=== PATIENT | female | born 1985 | race African-American/Black ===

== ENCOUNTER 2017-04-04 07:47 | Emergency (ER) | payer MEDICAID ==
[~2017-04-04] VITALS: Ht 165.1 cm; Wt 70.0 kg
[~2017-04-04 07:47] MED LIST: AMOXICILLIN500 MG PO; BREVICON OR; BREVICON PO; CIPRO XR500 M2 PO; FIORICET PO; LORTAB 5 OR; MACROBID100 MG OR; NO; NO HOME MEDS; PRENATAL1 TA1 PO; PRILOSEC OTC20 MG OR; TORADOL OR; [UNRECOGNIZED DRUG - REMARK]
[2017-04-04 08:46] LABS: HEMATOCRIT 41.1 % (37.0-47.0); IMMATURE GRANULOCYTES 0.3 % (0.0-1.0); MEAN CELL VOLUME 87.3 fL CALC (80.0-100.0); MEAN CORPUSCULAR HGB 29.7 pG CALC (26.0-32.0); MEAN CORPUSCULAR HGB CONC 34.1 g/L CALC (32.0-36.0); NEUT# 5.58 thou/uL (2.00-7.15); RED BLOOD COUNT 4.71 mill/uL (4.20-5.60); RED CELL DISTRI WIDTH 12.2 % (11.5-15.5)
[2017-04-04 08:54] LABS: URINE BILIRUBIN - DIPSTICK NEGATIVE (NEGATIVE); URINE BLOOD DIPSTICK NEGATIVE (NEGATIVE); URINE CLARITY CLEAR; URINE COLOR YELLOW; URINE GLUCOSE - DIPSTICK NEGATIVE (NEGATIVE); URINE KETONE NEGATIVE (NEGATIVE); URINE LEUK ESTERASE NEGATIVE (NEGATIVE); URINE NITRITE - DIPSTICK NEGATIVE (Negative); URINE PROTEIN - DIPSTICK NEGATIVE (NEG-TRACE); URINE SPECIFIC GRAVITY <=1.005; URINE UROBILINOGEN - DIPSTICK 0.2 E.U./dL (0.2)
[2017-04-04 09:01] LABS: ALBUMIN 4.9 g/dL (3.2-5.0); ALKALINE PHOSPHATASE 64 u/l (38-126); ANION GAP 18 (6-22 (CALC)); BILIRUBIN, TOTAL 0.6 mg/dL (0.0-1.4); BUN 12 mg/dL (7-17); BUN/CREATININE RATIO 16 (12-20 (CALC)); CALCIUM 10.3 mg/dL (8.4-10.2); CARBON DIOXIDE 25 mmol/l (22-30); CHLORIDE 103 mmol/l (95-108); CREATININE 0.7 mg/dL (0.5-1.0); GFR > 60 ML/MIN (>=60 (CALC)); GFR FOR AFR.AMER. > 60 ML/MIN (>=60 (CALC)); GLUCOSE 111 mg/dL (65-105); POTASSIUM 4.1 mmol/l (3.5-5.1); SGOT/AST 20 u/l (14-36); SGPT/ALT 27 u/l (9-52); SODIUM 142 mmol/l (137-146); TOTAL PROTEIN 8.5 g/dL (6.3-8.2)
[2017-04-04 11:50] VITALS: BP 132/70
== END 2017-04-04 11:55 | disposition home or self-care (01) | DRG 93 ==
LOC: ED 07:47
PROVIDERS: Emergency Medicine
DX: R20.2 Paresthesia of skin (principal); R42 Dizziness and giddiness; R20.0 Anesthesia of skin

== ENCOUNTER 2018-11-18 18:09 | Emergency (ER) | payer OTHER ==
[~2018-11-18] VITALS: Ht 165.1 cm; Wt 70.0 kg
[2018-11-18] MEDS ORDERED: NORTREL PO (18:33)
[2018-11-18 19:27] LABS: HEMATOCRIT 39.3 % (37.0-47.0); HEMOGLOBIN 13.2 g/dl (12.0-16.0); IMMATURE GRANULOCYTES 0.3 % (0.0-5.0); MEAN CELL VOLUME 86.6 fL CALC (80.0-100.0); MEAN CORPUSCULAR HGB 29.1 pG CALC (26.0-32.0); MEAN CORPUSCULAR HGB CONC 33.6 g/L CALC (32.0-36.0); NEUT# 7.09 thou/uL (2.00-7.15); RED BLOOD COUNT 4.54 mill/uL (4.20-5.60); RED CELL DISTRI WIDTH 12.3 % (11.5-15.5)
[2018-11-18 19:28] LABS: URINE BILIRUBIN - DIPSTICK NEGATIVE (NEGATIVE); URINE BLOOD DIPSTICK NEGATIVE (NEGATIVE); URINE COLOR YELLOW; URINE GLUCOSE - DIPSTICK NEGATIVE (NEGATIVE); URINE KETONE NEGATIVE (NEGATIVE); URINE LEUK ESTERASE NEGATIVE (NEGATIVE); URINE NITRITE - DIPSTICK NEGATIVE (Negative); URINE PH 6.5 (4.5-8.0); URINE PROTEIN - DIPSTICK NEGATIVE (NEG-TRACE); URINE UROBILINOGEN - DIPSTICK 0.2 E.U./dL (0.2)
[2018-11-18 19:51] LABS: ALBUMIN 4.6 g/dL (3.2-5.0); ALKALINE PHOSPHATASE 61 u/l (38-126); AMYLASE 66 u/l (30-110); ANION GAP 18 (6-22 (CALC)); BILIRUBIN, TOTAL 0.5 mg/dL (0.0-1.4); BUN 12 mg/dL (7-17); BUN/CREATININE RATIO 16 (12-20 (CALC)); CARBON DIOXIDE 22 mmol/l (22-30); CHLORIDE 104 mmol/l (95-108); CREATININE 0.8 mg/dL (0.5-1.0); GFR > 60 ML/MIN (>=60 (CALC)); GFR FOR AFR.AMER. > 60 ML/MIN (>=60 (CALC)); LIPASE 52 u/l (23-300); POTASSIUM 3.9 mmol/l (3.5-5.1); SGOT/AST 21 u/l (14-36); SODIUM 140 mmol/l (137-146); TOTAL PROTEIN 8.3 g/dL (6.3-8.2)
[2018-11-18] MEDS ORDERED: PROTONIX40 MG PO (20:47)
[2018-11-18 21:02] VITALS: BP 160/82
== END 2018-11-18 21:02 | disposition home or self-care (01) ==
LOC: ED 18:09
PROVIDERS: Family Medicine
DX: K29.70 Gastritis, unspecified, without bleeding (principal); R10.11 Right upper quadrant pain
CPT/HCPCS: Q9967